=== PATIENT | male | born 1950 | race Two or more races ===

== ENCOUNTER 2021-05-06 16:40 | Inpatient (IN) | payer BC, MEDICAID ==
[~2021-05-06] VITALS: Ht 180.3 cm; Wt 89.0 kg
[2021-05-06] MEDS ORDERED: MORPHINE SULFATE 4 MG/ML CPJ (NOT FOR IM USE) IV STA (16:56)
[2021-05-06] MEDS ORDERED: MAGNESIUM/ALUMINUM HYDROXIDE/SIMETHICONE 30ML UDC PO STA (16:56)
[2021-05-06] MEDS ORDERED: FAMOTIDINE 20MG/2ML VIAL IV STA (16:56)
[2021-05-06] MEDS ORDERED: ONDANSETRON HCL 4MG/2ML INJ IV STA (16:56)
[2021-05-06] MEDS ORDERED: VISCOUS LIDOCAINE 2% 15 ML UDC PO STA (16:56)
[2021-05-06] MEDS ORDERED: VISCOUS LIDOCAINE 2% 15 ML UDC PO SCH (17:30)
[2021-05-06 17:44] LABS: BASOPHILS % 1.1 % (0.0-2.0); EOSINOPHILS % 1.6 % (0.0-5.0); HEMATOCRIT. 44.2 % (42.0-52.0); HEMOGLOBIN. 15.2 g/dL (14.0-18.0); LYMPHOCYTES % 13.1 % (20.0-50.0); MEAN CORPUSCULAR HEMOGLOBIN 31.7 pg (28.0-32.0); MEAN CORPUSCULAR VOLUME 92.4 fL (80.0-94.0); MEAN PLATELET VOLUME 7.7 fl (7.4-10.4); MONOCYTES % 5.9 % (2.0-8.0); NEUTROPHILS % 78.3 % (40.0-76.0); PLATELET 266 x1000/uL (130-400); RED BLOOD CELL COUNT 4.79 mill/uL (4.7-6.1); RED CELL DISTRIBUTION WIDTH 13.8 % (11.6-14.6)
[2021-05-06 17:52] LABS: CHLORIDE 104 mEq/L (98-107)
[2021-05-06 18:08] LABS: CLARITY URINE CLEAR (CLEAR); COLOR URINE YELLOW (YELLOW); KETONES URINE 2+ (NEGATIVE); LEUKOCYTE ESTERASE URINE NEGATIVE (NEGATIVE); NITRITE URINE NEGATIVE (NEGATIVE); OCCULT BLOOD URINE NEGATIVE (NEGATIVE); PH URINE 6.5 (4.5-8.0); PROTEIN URINE 1+ (NEGATIVE); SPECIFIC GRAVITY URINE 1.016 (1.005-1.030); UROBILINOGEN URINE 0.2 E.U./dL (0.2-1.0)
[2021-05-06] MEDS ORDERED: MORPHINE SULFATE 4 MG/ML CPJ (NOT FOR IM USE) IV ONE (18:15)
[2021-05-06] MEDS ORDERED: AMLODIPINE 5MG TABLET PO ONE (18:45)
[2021-05-06] MEDS ORDERED: SODIUM CHLORIDE 0.9% 1,000 ML IV ONE (19:30)
[2021-05-06] MEDS ORDERED: IOHEXOL-300 100 ML BOTTLE ONE (20:26)
[2021-05-06] MEDS ORDERED: LABETALOL 5MG/ML SYR 20 MG/4 ML SYRINGE IV ONE (21:00)
[2021-05-06] MEDS ORDERED: HYDRALAZINE 20MG/ML VIAL IV PRN (21:30)
[2021-05-06] MEDS ORDERED: DOCUSATE SODIUM 100MG CAPSULE PO PRN (21:30)
[2021-05-06] MEDS ORDERED: HYDROCODONE/ACETAMINOPHEN 5/325MG TABLET PO PRN (21:30)
[2021-05-06] MEDS ORDERED: CLONIDINE 0.1MG TABLET PO PRN (21:30)
[2021-05-06] MEDS ORDERED: IPRATROPIUM/ALBUTEROL 0.5-3(2.5)MG/3ML NEB NEB PRN (21:30)
[2021-05-06] MEDS ORDERED: ACETAMINOPHEN 325MG TABLET PO PRN (21:30)
[2021-05-06] MEDS ORDERED: LORAZEPAM 0.5MG TABLET PO PRN (21:30)
[2021-05-06] MEDS ORDERED: ONDANSETRON HCL 4MG/2ML INJ IV PRN (21:30)
[2021-05-06] MEDS ORDERED: LORAZEPAM 2MG/ML CPJ IV PRN (21:30)
[2021-05-06] MEDS ORDERED: MAGNESIUM/ALUMINUM HYDROXIDE/SIMETHICONE 30ML UDC PO PRN (21:30)
[2021-05-06] MEDS ORDERED: IOHEXOL-350 100 ML BOTTLE ONE (22:01)
[2021-05-06] MEDS: NIFEDIPINE XL 60MG TAB PO SCH (22:30)
[2021-05-06] MEDS: ENOXAPARIN 30MG/0.3ML SYR SUBCUT SCH (22:31)
[2021-05-06 23:46] LABS: ETHANOL BLOOD < 10 mg/dL
[2021-05-06 23:51] LABS: CREATINE KINASE 144 IU/L (39-308)
[2021-05-06 23:52] LABS: CREATINE KINASE MB FRACTION 1.7 ng/mL (0.5-3.6)
[2021-05-07] VITALS (12 sets, daily range): BP systolic 116–157; BP diastolic 49–83
[2021-05-07 00:10] LABS: HEPATITIS B SURFACE ANTIGEN NEGATIVE
[2021-05-07 06:02] LABS: *AMPHETAMINES SCREEN URINE NEGATIVE (NEGATIVE); *BARBITURATES SCREEN URINE NEGATIVE (NEGATIVE); *BENZODIAZEPINES SCREEN URINE NEGATIVE (NEGATIVE); *COCAINE SCREEN URINE NEGATIVE (NEGATIVE)
[2021-05-07 06:03] LABS: CANNABINOID URINE SCREEN NEGATIVE (NEGATIVE); METHADONE URINE SCREEN NEGATIVE (NEGATIVE); OPIATES URINE SCREEN PRESUMTIVE POSITIVE (NEGATIVE); PHENCYCLIDINE URINE SCREEN NEGATIVE (NEGATIVE)
[2021-05-07 07:18] LABS: CHLORIDE 103 mEq/L (98-107)
[2021-05-07 07:24] LABS: BASOPHILS % 0.8 % (0.0-2.0); HEMATOCRIT. 41.7 % (42.0-52.0); HEMOGLOBIN. 14.3 g/dL (14.0-18.0); LYMPHOCYTES % 18.8 % (20.0-50.0); MEAN CORPUSCULAR HEMOGLOBIN 31.9 pg (28.0-32.0); MEAN CORPUSCULAR VOLUME 92.8 fL (80.0-94.0); MEAN PLATELET VOLUME 7.5 fl (7.4-10.4); MONOCYTES % 9.7 % (2.0-8.0); NEUTROPHILS % 68.7 % (40.0-76.0); PLATELET 259 x1000/uL (130-400); RED BLOOD CELL COUNT 4.49 mill/uL (4.7-6.1); RED CELL DISTRIBUTION WIDTH 13.7 % (11.6-14.6)
[2021-05-07 07:31] LABS: LDL CHOLESTEROL 135 mg/dL (5-100)
[2021-05-07 07:32] LABS: HDL CHOLESTEROL 40 mg/dL (40-59)
[2021-05-07 07:35] LABS: CREATINE KINASE 109 IU/L (39-308)
[2021-05-07 07:36] LABS: CREATINE KINASE MB FRACTION 1.1 ng/mL (0.5-3.6)
[2021-05-07] MEDS ORDERED: INFLUENZA VACCINE 05/PF 0.5 ML SYRINGE IM ONE (08:00)
[2021-05-07] MEDS: NIFEDIPINE XL 60MG TAB PO SCH (08:39)
[2021-05-07] MEDS: ENOXAPARIN 30MG/0.3ML SYR SUBCUT SCH (08:40)
[2021-05-07] MEDS ORDERED: FOLIC ACID 1MG TABLET PO SCH (09:00)
[2021-05-07] MEDS ORDERED: MULTIVITAMINS,THER W-MINERALS TABLET PO SCH (09:00)
[2021-05-07] MEDS ORDERED: THIAMINE HCL 100MG TABLET PO SCH (09:00)
[2021-05-07] MEDS ORDERED: POTASSIUM CHLORIDE 20MEQ TABLET SR PO SCH (10:00)
[2021-05-07] MEDS ORDERED: ASPIRIN 81MG TABLET PO SCH (10:00)
[2021-05-07] MEDS ORDERED: PNEUMOCOCCAL 23-VAL P-SAC VAC 0.5 ML IM ONE (12:00)
[2021-05-07] MEDS ORDERED: METOPROLOL TARTRATE 50MG TABLET PO SCH (21:00)
[2021-05-07] MEDS ORDERED: ATORVASTATIN CALCIUM 20MG TABLET PO SCH (21:00)
[2021-05-08] VITALS: BP 128/55
[2021-05-08 02:00] VITALS: BP 108/47
[2021-05-08 04:00] VITALS: BP 121/42
[2021-05-08 06:00] VITALS: BP 116/56
[2021-05-08 06:53] LABS: CHLORIDE 103 mEq/L (98-107)
[2021-05-08 06:57] LABS: BASOPHILS % 0.6 % (0.0-2.0); EOSINOPHILS % 2.7 % (0.0-5.0); HEMATOCRIT. 41.8 % (42.0-52.0); HEMOGLOBIN. 14.5 g/dL (14.0-18.0); LYMPHOCYTES % 15.1 % (20.0-50.0); MEAN CORPUSCULAR HEMOGLOBIN 32.2 pg (28.0-32.0); MEAN CORPUSCULAR VOLUME 92.9 fL (80.0-94.0); MEAN PLATELET VOLUME 7.8 fl (7.4-10.4); MONOCYTES % 10.4 % (2.0-8.0); NEUTROPHILS % 71.2 % (40.0-76.0); PLATELET 259 x1000/uL (130-400); RED CELL DISTRIBUTION WIDTH 13.5 % (11.6-14.6)
[2021-05-08] MEDS ORDERED: ENOXAPARIN 40MG/0.4ML SYR SUBCUT SCH (09:00)
== END 2021-05-08 08:00 | disposition left against medical advice (07) | DRG 305 ==
LOC: ER 16:40 → 3WST 20:50 → EDBEDREQSVC 20:53 → EDBEDREQTM 20:53 → EDBEDREQ 20:53 → ENRESERV 23:34
PROVIDERS: ADMIT Internal Medicine; ATTEND Internal Medicine
DX: I16.1 Hypertensive emergency (principal); E87.6 Hypokalemia; E78.5 Hyperlipidemia, unspecified; I71.4 Abdominal aortic aneurysm, without rupture; K40.20 Bilateral inguinal hernia, without obstruction or gangrene, not specified as recurrent; I71.2 Thoracic aortic aneurysm, without rupture; E78.00 Pure hypercholesterolemia, unspecified; I10 Essential (primary) hypertension; F10.10 Alcohol abuse, uncomplicated; K76.0 Fatty (change of) liver, not elsewhere classified; R91.8 Other nonspecific abnormal finding of lung field; R07.89 Other chest pain; K76.89 Other specified diseases of liver; Z53.29 Procedure and treatment not carried out because of patient's decision for other reasons; Z87.891 Personal history of nicotine dependence; Z91.14 Patient's other noncompliance with medication regimen; Z79.899 Other long term (current) drug therapy; Z88.0 Allergy status to penicillin
CPT/HCPCS: 36415; 71045; 71275; 74174; 74177; 80048; 80053; 80061; 80305; 80320; 81003; 82330; 82550; 82553; 83036; 83735; 84443; 84484; 85025; 86705; 86709; 86803; 87340; 90686; 93005; 93306; 93970; 99291; J1650; J2270; J2405; J3490; J7030; Q9967; G0480